=== PATIENT | female | born 1980 | race Caucasian/White ===

== ENCOUNTER 2025-01-20 06:47 | Emergency (ER) | payer OTHER, SELFPAY ==
[2025-01-20] MEDS ORDERED: Ibuprofen 200 MG TAB ONE (08:23)
[2025-01-20] MEDS ORDERED: predniSONE 20 MG TAB ONE (08:23)
== END 2025-01-20 08:30 | disposition home or self-care (01) ==
LOC: BURERS 06:47
DX: M54.31 Sciatica, right side (principal)
CPT/HCPCS: 96372; 99283; J2270; J7512